=== PATIENT | female | born 1990 | race African-American/Black ===

== ENCOUNTER 2018-08-13 12:39 | Inpatient (IN) ==
[2018-08-16] MEDS ORDERED: MAALOX PLUS LIQUID PO PRN (15:29)
[2018-08-16] MEDS ORDERED: DULCOLAX PR PRN (15:29)
[2018-08-16] MEDS ORDERED: SENOKOT PO PRN (15:29)
[2018-08-16] MEDS ORDERED: NICOTINE GUM BUCCAL PRN (15:29)
[2018-08-16] MEDS ORDERED: ZOFRAN IM PRN (15:29)
[2018-08-16] MEDS ORDERED: MOTRIN PO PRN (15:29)
[2018-08-16] MEDS ORDERED: ZOFRAN ODT PO PRN (15:29)
[2018-08-16] MEDS ORDERED: SEROQUEL PO PRN (15:29)
[2018-08-16] MEDS ORDERED: D5W 1,000 ML IV PRN (15:29)
[2018-08-16] MEDS ORDERED: PHENOBARBITAL IV PRN (15:29)
[2018-08-16] MEDS ORDERED: TYLENOL PO PRN (15:29)
[2018-08-16] MEDS ORDERED: ZOFRAN IV PRN (15:29)
[2018-08-16] MEDS ORDERED: DESYREL PO PRN (15:29)
[2018-08-16] MEDS ORDERED: IMODIUM PO PRN (15:29)
[2018-08-16] MEDS ORDERED: SINEMET 25/100 PO PRN (15:51)
[2018-08-16] MEDS ORDERED: LIBRIUM PO PRN (15:51)
[2018-08-16] MEDS ORDERED: ATARAX PO PRN (15:51)
[2018-08-16] MEDS ORDERED: ROBAXIN PO PRN (15:51)
[2018-08-16] MEDS ORDERED: TUBERSOL ID ONE (16:00)
[2018-08-16 16:11] LABS: URINE SOURCE CLEAN CATCH
[2018-08-16 16:16] LABS: UR AMPHETAMINES QUAL NONE DETECTED (NONE DETECT); UR BARBITUATES QUAL NONE DETECTED (NONE DETECT); UR BENZODIAZEPIN QUAL NONE DETECTED (NONE DETECT); UR CANNABINOIDS QUAL NONE DETECTED (NONE DETECT); UR COCAINE QUAL NONE DETECTED (NONE DETECT); UR METHADONE QUAL NONE DETECTED (NONE DETECT); UR METHAMPHETAMINE QUAL NONE DETECTED (NONE DETECT); UR OPIATES QUAL NONE DETECTED (NONE DETECT); UR OXYCODONE QUAL NONE DETECTED (NONE DETECT); UR PCP QUAL NONE DETECTED (NONE DETECT); UR PROPOXYPHENE QUAL NONE DETECTED (NONE DETECT); UR TCA QUAL NONE DETECTED (NONE DETECT)
[2018-08-16 16:29] LABS: BILIRUBIN URINE NEGATIVE (NEGATIVE); BLOOD URINE 4+ (NEGATIVE); CLARITY CLEAR (CLEAR); COLOR YELLOW; GLUCOSE URINE NEGATIVE (NEGATIVE); KETONE URINE NEGATIVE (NEGATIVE); LEUKOCYTES URINE NEGATIVE (NEGATIVE); NITRITE URINE NEGATIVE (NEGATIVE); PROTEIN URINE NEGATIVE (NEGATIVE); UROBILINOGEN URINE 1 mg/dL
[2018-08-16 16:38] LABS: URINE BACTERIA 1+ /HFP; URINE CAST NONE SEEN /LPF; URINE CRYSTAL NONE SEEN /HPF; URINE EPITHELIAL CELLS <10 /HPF (<10); URINE RBC 20-40 /HPF (<10); URINE WBC <10 /HPF (<10); URINE YEAST NONE SEEN /HPF
[2018-08-16 16:57] LABS: INR 0.85
[2018-08-16 17:11] LABS: AGAP 11; ALBUMIN 4.1 g/dL (3.5-5.0); ALKALINE PHOSPHATASE 54 U/L (32-104); BUN 12 mg/dL (8-22); CALCIUM 9.2 mg/dL (8.8-10.2); CHLORIDE 103 mmol/L (98-107); COSMO 280; CREATININE 0.7 mg/dL (0.5-0.9); ESTIMATED GFR > 60; GLUCOSE 108 mg/dL (70-104); GOT 13 U/L (10-30); GPT 6 U/L (10-36); POTASSIUM 4.3 mmol/L (3.5-5.1); SODIUM 140 mmol/L (136-145); TCO2 27 mmol/L (25-35); TOTAL PROTEIN 7.2 g/dL (6.3-8.3)
[2018-08-16 17:17] LABS: HEMATOCRIT 38.1 % (37.0-47.0); HEMOGLOBIN 12.1 g/dL (12.0-16.0); MCH 29.5 PG (27-31); MCHC 31.8 g/dL (33-37); MCV 92.9 FL (81-99); MPV 9.4 FL (7.4-10.4); RBC 4.1 XMIL (4.2-5.4); RDW 12.4 % (11.5-14.5); WBC 7.91 X1000 (4.8-10.8)
[2018-08-16 17:41] LABS: AMYLASE 111 U/L (20-200); LIPASE 39 U/L (13-60)
[2018-08-16] MEDS: NICODERM PATCH TD PRN (18:04)
[2018-08-16] MEDS: PROVERA PO SCH (18:04)
[2018-08-16] MEDS: SUBOXONE 2 MG/0.5 MG FILM SL SCH (18:04)
--- NOTE | 2018-08-16 19:27 | HISTORY AND PHYSICAL ---
CHIEF COMPLAINT: Nausea and vomiting. HISTORY OF PRESENT ILLNESS: Patient is a 28-year-old female who presented [facility] secondary to nausea, vomiting, abdominal pain, paresthesias and myalgias. Notes that she has been buying Suboxone off the street. Initially stated that she was going to try to come off of it, but she is very afraid that she is going to continue to use and abuse without Suboxone. REVIEW OF SYSTEMS: Patient notes that she has been having vaginal bleeding for the past 2 months. Her CINA score is 11 secondary to nausea, vomiting, abdominal pain, myalgias, occasional paresthesias. Denies any blood in her urine or blood in her stool. Denies any fevers or chills. Denies chest pain, palpitations. PAST MEDICAL HISTORY: Depression, bipolar, chronic history of constipation. FAMILY HISTORY: Noncontributory. SUBSTANCE ABUSE HISTORY: Patient was in [facility] in detox in 2014. She was at [facility] in 2018. She was also treated for 4 days in 2016. Unfortunately, she did not remain sober for any length of time after any of these events. She does have a long history of using ice but has not used in several months. Started cocaine but has not used in 7 or 8 months. She started opiates at age 14, has been on Suboxone for about 7 months but has not been getting it by prescription, and she takes Neurontin. Does not smoke or drink. PHYSICAL EXAMINATION: VITAL SIGNS: Reviewed and stable. GENERAL: She is awake, alert. She is in no current respiratory distress. HEENT: Normocephalic. NECK: Supple. CARDIOVASCULAR: Regular rate. No murmurs. CHEST: Clear, nonlabored. ABDOMEN: Soft, nondistended. EXTREMITIES: Moves all extremities. NEUROLOGIC: No focal neurological changes. SKIN: Warm and dry. No rashes. ASSESSMENT: 1. Nausea and vomiting. 2. Abdominal pain. 3. Myalgias. 4. Paresthesias. 5. Paroxysmal sweating. 6. Opiate abuse withdrawal and stabilization. 7. Dysfunctional uterine bleeding. 8. Bipolar. cc: Sony Guevara MD
[2018-08-17] MEDS: BENTYL PO PRN ×3 (03:50→23:58)
[2018-08-17] MEDS: IMODIUM PO PRN ×2 (03:50→23:59)
[2018-08-17] MEDS: SUBOXONE 2 MG/0.5 MG FILM SL SCH ×2 (05:18→18:12)
[2018-08-17] MEDS: PROTONIX PO SCH (06:38)
[2018-08-17] MEDS: THERA M PLUS PO SCH (10:20)
[2018-08-17] MEDS: PROVERA PO SCH (10:22)
[2018-08-17] MEDS: FOLIC ACID PO SCH (10:23)
[2018-08-17] MEDS: VITAMIN B-1 PO SCH (10:23)
[2018-08-17] MEDS: ATARAX PO PRN (15:37)
[2018-08-17] MEDS: NICODERM PATCH TD PRN (16:09)
--- NOTE | 2018-08-17 18:34 | PROGRESS NOTE ---
DATE: 08/17/2018 SUBJECTIVE: The patient notes that she does not feel quite as bad today as she did yesterday. Denies any fevers or chills. Denies any cough or congestion. Denies any dysuria or urinary frequency. PHYSICAL EXAMINATION: Vital Signs: Reviewed and stable. She is afebrile. Blood pressure is stable. General: She is awake, alert. Patient is in no current respiratory distress. HEENT: Normocephalic. Neck: Supple. Cardiovascular: Regular rate. No murmurs. Chest: Clear and nonlabored. Abdomen: Soft, nondistended. Extremities: Moves all extremities. ASSESSMENT: 1. Nausea and vomiting. 2. Abdominal pain. 3. Myalgias. 4. Paresthesias. 5. Opiate abuse, withdrawal, and stabilization. PLAN: We will continue patient in the hospital. We will continue to counseling psychologist each day. We will continue her on Suboxone 4 mg and will follow. cc: Sony Guevara MD
[2018-08-18] MEDS: SUBOXONE 2 MG/0.5 MG FILM SL SCH (05:19)
[2018-08-18] MEDS: PROTONIX PO SCH (06:26)
[2018-08-18 07:46] VITALS: BP 96/54
[2018-08-18] MEDS ORDERED: SUBOXONE 2 MG/0.5 MG FILM SL ONE (08:53)
[2018-08-18] MEDS: ATARAX PO PRN (09:27)
[2018-08-18] MEDS: FOLIC ACID PO SCH (09:28)
[2018-08-18] MEDS: PROVERA PO SCH (09:28)
[2018-08-18] MEDS: THERA M PLUS PO SCH (09:28)
[2018-08-18] MEDS: VITAMIN B-1 PO SCH (09:28)
--- NOTE | 2018-08-20 02:54 | DISCHARGE SUMMARY ---
ADMISSION DATE: 08/16/2018 DISCHARGE DATE: 08/18/2018 DISCHARGE DIAGNOSIS: 1. Nausea vomiting. 2. Abdominal pain. 3. Myalgias. 4. Dysfunctional uterine bleeding, improved. 5. Opiate abuse, withdrawal and stabilization. CONSULTATIONS: None. PROCEDURES: None. BRIEF HOSPITAL COURSE: The patient is a 28-year-old female who presented to the hospital with nausea, vomiting, abdominal pain, myalgias. She has been using and abusing opiates. She currently has been buying Suboxone off the street. She was admitted to the hospital, treated in the usual fashion, placed on Suboxone 4 mg. Unfortunately, this was not enough to stabilize her symptoms and her dose was increased to 8 mg. On discharge, she notes that she is feeling tremendously better. She is having no real withdrawal symptoms. In addition to her opiate issues, she was having dysfunctional uterine bleeding. She noted that she had been having a menstrual period for approximately 2 months. She has been trying to get in with [facility], but has been unsuccessful. We placed her on Provera 10 mg daily. After day 3, she noted that her bleeding had actually stopped and she was feeling better. DISPOSITION: Patient will be discharged home. We will continue her on Provera for a total of 10- day course. Discussed with her that she needs follow up outpatient with [facility] of her choice. She will continue Suboxone. Discussed that she needs to avoid all persons, places, situations which she has been using and abusing in the past. She needs outpatient life counseling as well as drug counseling. Greater than 30 minutes was spent in total care. cc: Sony Guevara MD
== END 2018-08-18 18:19 | disposition home or self-care (01) | DRG 897 ==
LOC: P.DIRADM 08-16 13:26 → P.MEDSURG 08-16 14:04
PROVIDERS: ADMIT Family Medicine; ATTEND Family Medicine
CPT/HCPCS: 80053; 80104; 80301; 80305; 80307; 80320; 81001; 82055; 82150; 83690; 84703; 85027; 85610; 86580; A9270; G0431; G0434; G0477; G0480; G6040